=== PATIENT | female | born 1980 | race Two or more races ===

== ENCOUNTER 2021-02-14 09:18 | Outpatient (CLI) | payer OTHER ==
--- NOTE | 2021-02-19 10:09 | Mammography Report ---
BILATERAL DIGITAL DIAGNOSTIC MAMMOGRAM 3D/2D: 02/14/2021 CLINICAL: Occasional left breast pain. Baseline exam. No prior exams were available for comparison. The tissue of both breasts is heterogeneously dense. T his may lower the sensitivity of mammography. No suspicious mass, calcification, or other finding in either breast. There are multiple well-circum scribed oval and round masses in both breasts, isodense to breast parenchyma, consistent with cysts. No abnormality at the patients reported area of left breast pain. IMPRESSION: NEGATIVE No mammographic evidence of malignancy or suspicious finding. Annual screening mammography recommended. This exam was interpreted at Station ID: [id number]. NOTE: For mammograms, a report in lay terms will be sent to the patient. Approximately 15% of breast malignancies will not be visualized mammographically. In the management of a palpable breast mass, a negative mammogram must not discourage biopsy of a clinically suspicious lesion. Electronically Signed By: Ángel Petit M.D. jr/:02/19/2021 08:48:29 ACR BI-RADS Category 1: Negative 3341F PARENCHYMAL PATTERN: (D) - The breast(s) demonstrate(s) heterogeneously dense fibroglandular parkiesha leigh. BI-RADS CATEGORY: (1) - 1 Unspecified - other [id number] return to screening LATERALITY: (B)
== END 2021-02-14 09:19 | disposition home or self-care (01) ==
LOC: DI 09:18
PROVIDERS: ATTEND Family Medicine
DX: N64.4 Mastodynia (principal)

== ENCOUNTER 2024-08-11 10:52 | Outpatient (CLI) | payer OTHER ==
--- NOTE | 2024-08-12 08:33 | Mammography Report ---
UNILATERAL RIGHT DIGITAL DIAGNOSTIC MAMMOGRAM 3D/2D WITH AUGMENTATION: 08/11/2024 CLINICAL: Palpable right breast lump. Comparison is made to exams dated: 03/01/2024 mammogram, 03/02/2023 mammogram, 03/11/2022 mammogram - [facility], and 02/14/2021 mammogram - [facility]. The breasts are heterogeneously dense, which may obscure small masses (category c / 51-75% glandular tissue). A BB marker was placed in the area of clinical concern in the right breast, and no mammographic abnor mality is identified. There is an oval circumscribed mass at the 9 o'clock posterior depth measuring 1.5 cm. There is an in tact retropectoral silicone gel implant. No other significant masses, calcifications, or other findings are seen in the breast. IMPRESSION: INCOMPLETE: NEED ADDITIONAL IMAGING EVALUATION 1) No mammographic abnormality in the area of clinical palpable concern at 12 o'clock. An ultrasound is recommended for further evaluation and is scheduled to immediately follow this examination. 2) Right breast 1.5 cm oval circumscribed mass at 9 o'clock posterior depth. An ultrasound is recomme nded for further evaluation and is scheduled to immediately follow this examination. Based on the Tyrer Cuzick model (a risk assessment model) the patient's lifetime risk is 13.9% and he r 10 year risk is 2.4%. According to the ACR, ACS, and NCCN guidelines, an annual breast MRI exam roman ng with mammogram is recommended if the patient's lifetime risk is 20% or greater. This exam was interpreted at Station ID: [id number]. NOTE: For mammograms, a report in lay terms will be sent to the patient. Approximately 15% of breast malignancies will not be visualized mammographically. In the management of a palpable breast mass, a negative mammogram must not discourage biopsy of a clinically suspicious lesion. Electronically Signed By: Pattie Bragg M.D., Ph.D. eb/:08/11/2024 16:19:04 ACR BI-RADS Category 0: Incomplete: Need Additional Imaging Evaluation PARENCHYMAL PATTERN: (D) - The breast(s) demonstrate(s) heterogeneously dense fibroglandular kezia leigh. BI-RADS CATEGORY: (0) - 0 Ultrasound [id number] Immediate follow-up LATERALITY: (B)
--- NOTE | 2024-08-12 08:33 | Ultrasound Report ---
LIMITED ULTRASOUND OF RIGHT BREAST: 08/11/2024 CLINICAL: Palpable right breast lump. Comparison is made to exams dated: 08/11/2024 mammogram - [facility], 03/01/2024 [facility] [place] m[facility], 03/02/2023 mammogram, 03/11/2022 mammogram - [facility], and 02/14/2021 mammogram - [facility]. Color flow and real-time ultrasound of the right breast 9 o'clock and 12 o'clock regions were perform ed. Moore scale images of the real-time examination were reviewed. There is a benign 0.6 cm simple cyst in the right breast at 12 o'clock, depth 6 cm from the nipple. This correlates as palpated. There also is a benign 2.1 cm simple cyst in the right breast at 9 o'clock, 5 cm from the nipple. Th is correlates with mammography findings. There is adjacent 0.6 cm simple cyst at 9 o'clock, 5 cm fro m the nipple. IMPRESSION: BENIGN Right breast simple cysts at 12 and 9 o'clock positions are benign. No mammographic or sonographic ev idence of malignancy. A 1 year screening mammogram is recommended. Clinical follow-up is also recommended, and further management of palpable abnormalities or other foc al signs or symptoms should be based on the results of clinical evaluation. If palpable abnormality o r other concerning symptom persists or progresses, further clinical evaluation should be considered. Findings and recommendations were conveyed to the patient during today's evaluation. This exam was interpreted at Station ID: [id number]. Electronically Signed By: Pattie Bragg M.D., Ph.D. eb/:08/11/2024 16:24:17 letter sent: No_Letter ACR BI-RADS Category 2: Benign BI-RADS CATEGORY: (2) - 2 RECOMMENDATION: (ANNUAL) - Recommend routine annual screening mammography. [id number] 1 year screening LATERALITY: (B)
== END 2024-08-11 10:53 | disposition home or self-care (01) ==
LOC: DI 10:52
PROVIDERS: ATTEND Nurse Practitioner Family
DX: N60.01 Solitary cyst of right breast (principal)